=== PATIENT | male | born 1990 | race Two or more races ===

== ENCOUNTER 2021-02-09 01:41 | Emergency (ER) | payer MEDICAID, OTHER ==
[~2021-02-09] VITALS: Ht 185.4 cm; Wt 106.6 kg
[2021-02-09 03:22] VITALS: BP 189/118
[2021-02-09 03:48] LABS: Hepatitis B Surface Antibody Positive
[2021-02-09] MEDS ORDERED: ACETAMINOPHEN 500 MG TAB PO ONE (04:30)
[2021-02-09 05:27] LABS: Hepatitis B Surface Antigen Negative (Negative)
== END 2021-02-09 06:32 | disposition home or self-care (01) ==
LOC: ER 01:41
DX: S60.222A Contusion of left hand, initial encounter (principal); Z77.21 Contact with and (suspected) exposure to potentially hazardous body fluids; Y04.8XXA Assault by other bodily force, initial encounter; Y93.89 Activity, other specified; Y92.89 Other specified places as the place of occurrence of the external cause; Y99.0 Civilian activity done for income or pay
CPT/HCPCS: 36415; 73130; 86703; 86706; 86803; 87340

== ENCOUNTER 2021-12-24 21:53 | Emergency (ER) | payer OTHER ==
[~2021-12-24] VITALS: Ht 185.4 cm; Wt 108.9 kg
[2021-12-24 21:53] VITALS: BP 151/103
[2021-12-24] MEDS ORDERED: KETOROLAC TROMETH 30 MG/ML 1ML VIAL IM ONE (23:00)
[2021-12-25] MEDS ORDERED: BACL10TA PO (00:14)
[2021-12-25] MEDS ORDERED: ACETAMINOPHEN 325 MG TAB PO ONE (00:15)
[2021-12-25] MEDS ORDERED: METHOCARBAMOL 500 MG TAB PO ONE (00:15)
== END 2021-12-25 00:28 | disposition home or self-care (01) ==
LOC: ER 21:53 → EEVIPCON 21:53 → ER 12-25 00:28
DX: S43.401A Unspecified sprain of right shoulder joint, initial encounter (principal); X58.XXXA Exposure to other specified factors, initial encounter; Y93.89 Activity, other specified; Y92.89 Other specified places as the place of occurrence of the external cause; Y99.8 Other external cause status
CPT/HCPCS: 73030; 96372; 99283; J1885

== ENCOUNTER 2024-05-04 23:02 | Emergency (ER) | payer OTHER ==
[~2024-05-04] VITALS: Ht 185.4 cm; Wt 139.3 kg
[~2024-05-04 23:02] MED LIST: BACL10TA PO
[2024-05-04] MEDS: cloNIDine HCL 0.1 MG TAB PO ONE (23:24)
[2024-05-05] MEDS ORDERED: AMLO1TAB22 PO (00:54)
--- NOTE | 2024-05-05 00:55 | ED.PDOC ---
HPI Comments 33-year-old male complaining of headache and nosebleed for the last 2-3 days. States today took his blood pressure when he got to the police station and blood pressure was 200s over 130. Patient states he was driving back to station when he had blurred vision. Had to warehouse puller. Patient denies any chest pain no shortness a breath. Today's 1st time having blurred vision. Chief Complaint: High Blood Pressure Time Seen by MD: 23:17 Reviewed Notes: Nurses Notes Allergies: Coded Allergies: NO KNOWN ALLERGIES (Unverified , 02/09/21) Home Meds Active Scripts Baclofen (Baclofen) 10 Mg Tab, 10 MG PO QHSP PRN for 10 Days, #10 TAB Prov:LUIZA WREN MD 12/25/21 Information Source: Patient Mode of Arrival: Ambulatory Severity: Moderate Past Medical History PAST MEDICAL HISTORY: Denies Surgical History: Denies all surgeries Family History Family History: Unknown Social History Smoker: Non-Smoker Alcohol: Occasionally Drugs: Denies Drug Use Constitutional: denies: chills, diaphoresis, fatigue, fever, malaise, sweats, weakness, others EENTM: reports: blurred vision; denies: double vision, ear bleeding, ear discharge, ear drainage, ear pain, ear ringing, eye pain, eye redness, hearing loss, mouth pain, mouth swelling, nasal discharge, nose bleeding, nose congestion, nose pain, photophobia, tearing, throat pain, throat swelling, voice changes, others Respiratory: denies: cough, hemoptysis, orthopnea, SOB at rest, shortness of breath, SOB with excertion, stridor, wheezing, others Cardiovascular: reports: palpitations; denies: chest pain, dizzy spells, diaphoresis, Dyspnea on exertion, edema, irregular heart beat, left arm pain, lightheadedness, PND, syncope, others Gastrointestinal: denies: abdomen distended, abdominal pain, blood streaked bowels, constipated, diarrhea, dysphagia, difficulty swallowing, hematemesis, melena, nausea, poor appetite, poor fluid intake, rectal bleeding, rectal pain, vomiting, others Genitourinary: denies: burning, dysuria, flank pain, frequency, hematuria, incontinence, penile discharge, penile sore, pain, testicle pain, testicle swelling, urgency, others Neurological: denies: dizziness, fainting, headache, left sided numbness, left sided weakness, numbness, paresthesia, pre-existing deficit, right sided numbness, right sided weakness, seizure, speech problems, tingling, tremors, weakness, others Musculoskeletal: denies: back pain, gout, joint pain, joint swelling, muscle pain, muscle stiffness, neck pain, others Integumetry: denies: bruises, change in color, change in hair/nails, dryness, laceration, lesions, lumps, rash, wounds, others Physical Exam General Appearance: No Apparent Distress, Normal HEENT: Normal ENT Inspection, Pharynx Normal, TMs Normal Neck: Full Range of Motion, Non-Tender, Normal, Normal Inspection Respiratory: Chest Non-Tender, Lungs Clear, No Accessory Muscle Use, No Respiratory Distress, Normal Breath Sounds Cardiovascular: No Edema, No JVD, No Murmur, No Gallop, Normal Peripheral Pulses, Regular Rate/Rhythm Breast Exam: Deferred Gastrointestinal: No Organomegaly, Non Tender, No Pulsatile Mass, Normal Bowel Sounds, Soft Genitalia: Deferred Pelvic: Deferred Rectal: Deferred Extremities: No calf tenderness, Normal capillary refill, Normal inspection, Normal range of motion, Non-tender, No pedal edema Musculoskeletal : Apperance: Normal Neurologic: Alert, proposal director II-XII nml as Tested, No Motor Deficits, Normal Affect, Normal Mood, No Sensory Deficits Cerebellar Function: Normal Reflexes: Normal Skin: Dry, Normal Color, Warm Lymphatic: No Adenopathy Was a procedure done? Was a procedure done?: No CP Differential Dx Differential Diagnosis: N/A Differential Diagnosis: HTN Essential, HTN Accelerated X-Ray, Labs, Meds, VS Vital Signs Date Time Temp Pulse Resp B/P (MAP) Pulse Ox O2 Delivery O2 Flow Rate FiO2 05/04/24 23:25 Room Air* 0 21 05/04/24 23:24 159/100 05/04/24 23:14 98.7 90 18 159/100 (119) 94 Current Medications Medications (Trade) Dose Ordered Sig/Maryann Route Start Time Stop Time Status Last Admin Clonidine HCl (Catapres Tablet) 0.2 mg ONCE ONCE PO 05/04/24 23:30 05/04/24 23:31 DC 05/04/24 23:24 X-Ray, Labs, Meds, VS Comment Imaging: X-rays and CT scans were reviewed and interpreted by this provider, imaging shows no fractures and no pathological disease. Pending radiology review. Laboratory: Labs reviewed and interpreted by this provider. No significant abnormalities noted. Patient has prior medical visits reviewed. Med reconciliation performed Vital signs reviewed Patient reports relief of all symptoms after 0.2 of clonidine. Time of 1ST Reevaluation: 00:55 Reevaluation 1ST: Improved Patient Education/Counseling: Diagnosis, Treatment, Need For Follow Up (Patient advised to follow-up in the emergency room in the next 24 to 48 hours if symptoms do not improve. Advised follow-up with PCP in the next 3 to 5 days. Patient verbalized understanding. ) Family Education/Counseling: Diagnosis Departure 1 Departure Time of Disposition: 00:54 Impression: Primary Impression: Hypertension Qualified Codes: I10 - Essential (primary) hypertension Disposition: HOME / SELF CARE / HOMELESS Condition: Fair e-Prescriptions Amlodipine Besylate (Amlodipine Besylate) 5 Mg Tab 1 TAB PO DAILY, #30 TAB 5 Refills Prov: ANA CRISTINA PARRA 05/05/24 Discharged With: Self Critical Care Note Critical Care Time?: No Stability Stability form required: No Heart Score Heart Score: Heart Score Response (Comments) Value History N/A 0 EKG N/A 0 Age N/A 0 Risk Factors N/A 0 Troponin N/A 0 Total 0 ANA CRISTINA PARRA May 05, 2024 00:55
[2024-05-05 01:16] VITALS: BP 157/98; PULSE 95; RESP 18; TEMP 97.9; O2SAT 99
== END 2024-05-05 01:24 | disposition home or self-care (01) ==
LOC: ER 23:02
DX: I10 Essential (primary) hypertension (principal); Z79.899 Other long term (current) drug therapy